=== PATIENT | female | born 1970 | race Caucasian/White ===

== ENCOUNTER 2017-02-16 06:53 | Day surgery (SDC) | payer OTHER ==
[~2017-02-16 06:53] MED LIST: FENTANYL 250 MCG/5 ML AMP IV PRN; LACTATED RINGERS 1,000 ML IV SCH; LIDOCAINE 1% 2 ML VIAL ID PRN; MIDAZOLAM HCL 5 MG/5 ML VIAL IV PRN; ONDANSETRON 4 MG/2ML 2 ML VIAL IV PRN
[2017-02-16] MEDS ORDERED: MIDAZOLAM HCL 5 MG/5 ML VIAL ONE (07:24)
[2017-02-16] MEDS ORDERED: LIDOCAINE Viscous 2% 15 ML UDCUP ONE (07:24)
[2017-02-16] MEDS ORDERED: FENTANYL 250 MCG/5 ML AMP ONE (07:24)
[2017-02-16] MEDS ORDERED: ONDANSETRON 4 MG/2ML 2 ML VIAL ONE (08:14)
[2017-02-16 12:24] LABS: HELICOBACTER PYLORII DETECTION NEGATIVE (NEGATIVE)
--- NOTE | 2017-02-22 14:22 | SURGPATH ---
[facility] [address] [place] [id number] Patient Name: LISA REDDY MR#: [id number] : 1970 Gender: F Specimen #: [id number] Collected: 02/16/2017 Received: 02/19/2017 Reported: 02/20/2017 Submitting Phys: DIOGO CHAVEZ Copy To Phys: [facility] TAWANNA KINCAID Addendum Present Clinical History / Pre-Operative Diagnosis: NAUSEA; VOMITING; RULE OUT GIARDIA, CELIAC SPRUE AND GASTRITIS Specimen Source / Surgical Procedure Performed: #1-DUODENAL BIOPSY; #2-ANTRAL BIOPSY Interpretation: 1. DUODENUM, BIOPSY: - NO DIAGNOSTIC ABNORMALITIES 2. STOMACH, ANTRUM, BIOPSY: - MINIMAL CHRONIC ANTRAL GASTRITIS WITHOUT ACTIVITY - HELICOBACTER IMMUNOSTAIN PENDING, TO FOLLOW IN A SUPPLEMENTAL REPORT Electronically Signed Out Grace Kearns M.D. Addendum Date Reported: 02/21/2017 Signed Out Addendum Comment On part 2, no Helicobacter organisms are seen on Helicobacter immunostain. The controls stain appropriately. dcw/02/21/2017 Electronically Signed Out Grace Kearns M.D. Gross Description: #1 The specimen is received in a formalin filled container labeled with the patient's name and "duodenal biopsy". Two george biopsies are 0.3 and 0.5 cm. Totally embedded in cassette #1. #2 The specimen is received in a formalin filled container labeled with the patient's name and "antral biopsy". Two george biopsies are 0.3 and 0.4 cm. Totally embedded in cassette #2. Trini Singh Microscopic Description: Part 1: Sections show duodenal mucosa with overall intact architecture with a villous to crypt ratio of three to one. No increased intraepithelial lymphocytes, gastric metaplasia, active duodenitis, or evidence of Giardia are seen on routine stain. No malignancy is seen. Part 2: Sections show gastric antral and oxyntic mucosa with overall intact architecture. Minimal chronic inflammation is seen without active inflammation. No Helicobacter organisms are seen on routine stain, pending immunostain. No dysplasia or malignancy is seen. (Analyte-specific reagents (ASR) are used in many laboratory tests necessary for standard medical care and generally do not require FDA approval. This test was developed and its performance characteristics determined by [facility]. It has not been cleared or approved by the U.S. Food and Drug Administration. [facility] is certified under the Clinical Laboratory Improvement Amendments of 1988 as qualified to perform high complexity clinical laboratory testing. All controls stain as expected.) 1: 94589 2: 72551, 27911 K29.30
== END 2017-02-16 08:54 | disposition home or self-care (01) ==
LOC: SDC 06:53
PROVIDERS: ATTEND Internal Medicine Gastroenterology
PROC: 0DB98ZX Excision of Duodenum, Via Natural or Artificial Opening Endoscopic, Diagnostic (ICD-10-PCS; principal; 2017-02-16)
PROC: 0DB68ZX Excision of Stomach, Via Natural or Artificial Opening Endoscopic, Diagnostic (ICD-10-PCS; 2017-02-16)
DX: K29.50 Unspecified chronic gastritis without bleeding (principal); K29.80 Duodenitis without bleeding